=== PATIENT | male | born 1940 | race Caucasian/White ===

== ENCOUNTER 2018-03-26 06:18 | Inpatient (IN) | payer OTHER ==
[~2018-03-26] VITALS: Ht 167.6 cm; Wt 75.2 kg
[~2018-03-26 06:18] MED LIST: BACITRACIN 50,000 UNIT ONE; BUPIVACAINE/PF 0.5% ONE; EPINEPHRINE 1 MG/ML, 1ML ONE; THROMBIN 5,000 UNIT VIAL TP ONE; VANCOMYCIN 1,000 MG ONE
[2018-03-26] MEDS ORDERED: LACTATED RINGERS 1,000 ML IV SCH (06:48)
[2018-03-26 06:56] VITALS: BP 174/85
[2018-03-26] MEDS ORDERED: OxyconTIN ER 10 MG TAB.ER PO ONE (07:00)
[2018-03-26] MEDS ORDERED: GABAPENTIN 300 MG CAPSULE PO ONE (07:00)
[2018-03-26] MEDS ORDERED: LIDOCAINE-MPF 1%, 2ML INFIL ONE (07:00)
[2018-03-26] MEDS ORDERED: ACETAMINOPHEN 500 MG TABLET PO ONE (07:00)
[2018-03-26] MEDS ORDERED: NAPR220C2 PO (07:17)
[2018-03-26] MEDS ORDERED: LISI-170 PO (07:17)
[2018-03-26] MEDS ORDERED: FENTANYL PF 250 MCG/5ML ONE (07:36)
[2018-03-26] MEDS ORDERED: MIDAZOLAM 1 MG/ML, 2ML ONE (07:36)
[2018-03-26] MEDS ORDERED: ONDANSETRON 2MG/ML, 2ML IVPush PRN (08:00)
[2018-03-26] MEDS ORDERED: METOCLOPRAMIDE 5 MG/ML, 2ML IV PRN (08:00)
[2018-03-26] MEDS ORDERED: HYDROmorphone 1 MG/ML, 1ML IV PRN (08:00)
[2018-03-26] MEDS ORDERED: OXYcodone 5 MG/5 ML ORAL.SOL UDC PO PRN (08:00)
[2018-03-26] MEDS ORDERED: ACETAMINOPHEN 325 MG TABLET PO PRN (08:00)
[2018-03-26] MEDS ORDERED: LABETALOL 5MG/ML, 20ML IV PRN ×2 (08:00→12:00)
[2018-03-26] MEDS ORDERED: hydrALAzine 20 MG/ML, 1ML IV PRN (08:00)
[2018-03-26] MEDS ORDERED: FENTANYL PF 100 MCG/2ML ONE (10:24)
[2018-03-26] MEDS ORDERED: OXYcodone 5 MG/5 ML ORAL.SOL UDC ONE (10:24)
[2018-03-26] MEDS: FENTANYL PF 100 MCG/2ML IV PRN ×2 (10:26→10:40)
[2018-03-26] MEDS ORDERED: CEFAZOLIN 1,000 MG ONE (11:13)
[2018-03-26] MEDS ORDERED: ROCURONIUM 10 MG/ML,10ML ONE (11:13)
[2018-03-26] MEDS ORDERED: METOCLOPRAMIDE 5 MG/ML, 2ML ONE (11:13)
[2018-03-26] MEDS ORDERED: SUCCINYLCHOLINE 20 MG/ML, 10ML ONE (11:13)
[2018-03-26] MEDS ORDERED: DEXAMETHASONE 4 MG/ML, 1ML ONE (11:13)
[2018-03-26] MEDS ORDERED: PROPOFOL 10 MG/ML, 20ML ONE (11:13)
[2018-03-26] MEDS ORDERED: PROMETHAZINE 25 MG/ML, 1ML IM PRN (12:00)
[2018-03-26] MEDS ORDERED: CYCLOBENZAPRINE 10 MG TABLET PO PRN (12:00)
[2018-03-26] MEDS ORDERED: HYDROcodone/APAP 10/325 MG TABLET PO PRN (12:00)
[2018-03-26] MEDS ORDERED: BISACODYL 10 MG SUPP PR PRN (12:00)
[2018-03-26] MEDS ORDERED: OXYcodone/APAP 5/325MG TABLET PO PRN (12:00)
[2018-03-26] MEDS ORDERED: MAGNESIUM HYDROXIDE 8%, 30ML UDC PO PRN (12:00)
[2018-03-26] MEDS ORDERED: DIPHENHYDRAMINE 50 MG CAPSULE PO PRN (12:00)
[2018-03-26] MEDS ORDERED: ONDANSETRON 2MG/ML, 2ML IV PRN (12:00)
[2018-03-26] MEDS ORDERED: ONDANSETRON ODT 4 MG PO PRN (12:00)
[2018-03-26] MEDS ORDERED: morphine SULFATE 10 MG/ML, 1ML IV PRN (12:00)
[2018-03-26] MEDS: D5%-0.9% NACL+KCL 20MEQ 1,000 ML IV SCH (12:52)
[2018-03-26 13:51] VITALS: BP 95/54
[2018-03-26] MEDS ORDERED: CEFAZOLIN PMX 1GM/50ML 50 ML IVPB SCH (16:30)
[2018-03-26] MEDS: CEFAZOLIN 1,000 MG in DEXTROSE 5% 50 ML IVPB SCH (17:14)
[2018-03-26 19:40] VITALS: BP 149/86
[2018-03-26] MEDS ORDERED: ZOLPIDEM 5MG TABLET PO PRN (21:00)
[2018-03-26 23:32] VITALS: BP 146/75
[2018-03-26] MEDS: LISINOPRIL 20 MG TABLET PO SCH (23:34)
[2018-03-27] MEDS: CEFAZOLIN 1,000 MG in DEXTROSE 5% 50 ML IVPB SCH ×2 (01:20→09:44)
[2018-03-27] MEDS: D5%-0.9% NACL+KCL 20MEQ 1,000 ML IV SCH ×2 (01:20→11:00)
[2018-03-27 03:54] VITALS: BP 125/74
[2018-03-27 07:34] VITALS: BP 122/65
[2018-03-27] MEDS ORDERED: SENNA/DOCUSATE TABLET PO SCH (09:00)
[2018-03-27] MEDS: LISINOPRIL 20 MG TABLET PO SCH (09:44)
== END 2018-03-27 12:46 | disposition home or self-care (01) | DRG 517 ==
LOC: ORIP 06:18 → 4NOR 11:22 → DCLOUNGE 03-27 12:29
PROVIDERS: ADMIT Neurological Surgery; ATTEND Neurological Surgery
PROC: 01NB0ZZ Release Lumbar Nerve, Open Approach (ICD-10-PCS; principal; 2018-03-26 09:00)
DX: M51.16 Intervertebral disc disorders with radiculopathy, lumbar region (principal); M48.062 Spinal stenosis, lumbar region with neurogenic claudication; Z79.899 Other long term (current) drug therapy
CPT/HCPCS: 72100; C1729; J0171; J0690; J1100; J2250; J2550; J2704; J3010; J3370; J3490; Q0162; J0330; J2765; J3480; J7120